=== PATIENT | male | born 2000 | race African-American/Black ===

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

== ENCOUNTER 2023-06-10 19:48 | Emergency (ER) | payer MEDICAID ==
[~2023-06-10] VITALS: Ht 188 cm; Wt 92.7 kg
[2023-06-10 20:06] VITALS: BP 118/70; PULSE 104; RESP 20; TEMP 97.8
[2023-06-10 21:16] VITALS: O2SAT 97
[2023-06-10] MEDS ORDERED: ACET500T58 PO (23:46)
[2023-06-10] MEDS ORDERED: AMOX875T4 PO (23:46)
== END 2023-06-11 00:14 | disposition home or self-care (01) ==
LOC: ER 19:48
DX: J06.9 Acute upper respiratory infection, unspecified (principal); R04.0 Epistaxis; J45.909 Unspecified asthma, uncomplicated; F12.10 Cannabis abuse, uncomplicated; R51.9 Headache, unspecified; Z77.22 Contact with and (suspected) exposure to environmental tobacco smoke (acute) (chronic)
CPT/HCPCS: 70450